=== PATIENT | female | born 1990 ===

== ENCOUNTER 2023-07-02 12:45 | Outpatient (CLI) | payer OTHER ==
--- NOTE | 2023-07-03 08:38 | Ultrasound Report ---
LIMITED ULTRASOUND OF RIGHT BREAST: 07/02/2023 CLINICAL: Patient returns for a 6 month follow up of the right breast. Comparison is made to exams dated: 08/12/2022 ultrasound, 11/01/2020 ultrasound, and 08/24/2020 [facility]. Color flow ultrasound of the right breast 12 o'clock region was performed. Boudreaux scale images of the real-time examination were reviewed. There is a 2.3 cm x 2.3 cm x 2 cm round mass in the right breast at 12 o'clock middle depth 5 cm from the nipple. This round mass is heterogeneously hypoechoic with a thickened, echogenic boundary. Th is abnormality is not significantly changed compared to the most recent ultrasound (08/12/22), but inc reased compared to a pre- ultrasound 08/24/20. Color flow imaging demonstrates that there is an adjacent vascularity. IMPRESSION: PROBABLY BENIGN The 2.3 cm x 2.3 cm x 2 cm round mass in the right breast was biopsy-proven in 2020 to be a fibroaden cristhian, has increased in size, likely due to hormonal stimulation, and is probably benign. Given interval growth from the initial exam, a follow-up right ultrasound in 6 months is recommended to demonstrate post stability. Findings and recommendations were conveyed to the patient at time of exam. This exam was interpreted at Station ID: [id number]. Electronically Signed By: Tania zabala/:07/02/2023 14:39:19 Ultrasound BI-RADS: 3 Probably benign BI-RADS CATEGORY: (3) - 3 Ultrasound [id number] 6 month follow-up LATERALITY: (R)
== END 2023-07-02 12:46 | disposition home or self-care (01) ==
LOC: DI 12:45
PROVIDERS: ATTEND Nurse Practitioner Family
DX: D24.1 Benign neoplasm of right breast (principal)

== ENCOUNTER 2023-09-07 07:35 | Emergency (ER) | payer OTHER ==
--- NOTE | 2023-09-07 08:12 | ED Physician Documentation ---
PD HPI HEADACHE - Stated complaint Stated Complaint: ZHAO - Chief complaint Chief Complaint: Neuro - History obtained from History obtained from: Patient - History of Present Illness Timing - onset: Yesterday Pain level max: 8 Pain level now: 8 Location: Global Associated symptoms: No: Fever, Stiff neck, Vomiting, Weakness, Numbness, Syncope, Seizure Improved by: Dark room Worsened by: Light, Noise Contributing factors: No: Anticoagulated - Additional information Additional information: 33-year-old female presents to the emergency department with migraine headache, ongoing since yesterday. Usually takes Imitrex, but is out of it. 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 Worse with light and sound. Gradual onset. Global. No trauma. No fevers. Better with darkroom, or slight and sound. Denies any possibility of . Not breast-feeding. Review of Systems Constitutional: denies: Fever Neurologic: denies: Seizure, Headache PD PAST MEDICAL HISTORY - Past Medical History Past Medical History: Yes Neuro: Migraines Psych: Anxiety - Past Surgical History Past Surgical History: Yes General: Appendectomy HEENT: Tonsil/Adenoidectomy - Present Medications Home Medications: Ambulatory Orders Medication Instructions Recorded Confirmed Amitriptyline HCl 1 tab PO DAILY 09/07/23 09/07/23 FLUoxetine [PROzac] 1 cap PO DAILY 09/07/23 09/07/23 Propranolol HCl 1 tab PO DAILY 09/07/23 09/07/23 Sumatriptan Succinate [Imitrex] 1 tab PO PRN PRN 09/07/23 09/07/23 - Allergies Allergies/Adverse Reactions: Allergies Allergy/AdvReac Type Severity Reaction Status Date / Time No Known Drug Allergies Allergy Verified 09/07/23 07:49 - Social History Does the pt smoke?: No Smoking Status: Never smoker Does the pt drink ETOH?: No Does the pt have substance abuse?: No - Immunizations Immunizations are current?: Yes - POLST Patient has POLST: No PD ED PE NORMAL - Vitals Vital signs reviewed: Yes - General General: Alert and oriented X 3, No acute distress, Other (Lying with a towel over her head,) - HEENT HEENT: Atraumatic, PERRL, EOMI, Moist mucous membranes - Neck Neck: Supple, no meningeal sign, No bony TTP - Cardiac Cardiac: RRR, Strong equal pulses - Respiratory Respiratory: No respiratory distress, Clear bilaterally - Abdomen Abdomen: Soft, Non tender, Non distended - Derm Derm: Warm and dry - Neuro Neuro: Alert and oriented X 3, 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 Given Toradol, Phenergan and Benadryl. Headache resolved. Patient feels much better and is requesting to go home at this time. No focal neurological deficits. Normal cerebellar testing. Normal gait. No evidence of subarachnoid hemorrhage, tumor. No indication for emergent neuroimaging. Patient counseled regarding signs and symptoms for which I believe and urgent re-evaluation would be necessary. Patient with good understanding of and agreement to plan and is comfortable going home at this time This document was made in part using voice recognition software. While efforts are made to proofread this document, sound alike and grammatical errors may occur. Departure - Departure Disposition: 01 Home, Self Care Clinical Impression: Migraine headache Qualifiers: Migraine type: unspecified Status migrainosus presence: without status migrainosus Intractability: not intractable Qualified Code(s): G43.909 - Migraine, unspecified, not intractable, without status migrainosus Condition: Good Instructions: ED Headache Migraine Follow-Up: HODAN HERNANDEZ ARNP [Primary Care Provider] - Comments: You were treated for a migraine headache today with Toradol, Phenergan and Benadryl. Please follow-up with your doctor for further care. Please return if you worsen. Forms: PCP List Discharge Date/Time: 09/07/23 09:00
[2023-09-07] MEDS: diphenhydrAMINE INJ 50 MG/ML VIAL IM STA (08:27)
[2023-09-07] MEDS: PROMETHAZINE 25 MG/1 ML VIAL IM STA (08:27)
[2023-09-07] MEDS: KETOROLAC 60 MG/2 ML VIAL IM STA (08:27)
[2023-09-07 09:18] VITALS: BP 121/74; O2SAT 100
== END 2023-09-07 09:00 | disposition home or self-care (01) ==
LOC: ED 07:35
DX: G43.909 Migraine, unspecified, not intractable, without status migrainosus (principal)
CPT/HCPCS: 96372; 99283; J1200

== ENCOUNTER 2023-11-11 13:21 | Outpatient (CLI) | payer OTHER ==
--- NOTE | 2023-11-12 08:00 | Mammography Report ---
BILATERAL DIGITAL DIAGNOSTIC MAMMOGRAM 3D/2D: 11/11/2023 CLINICAL: Diffuse bilateral breast pain. Baseline exam. No prior exams were available for comparison. There are scattered areas of fibroglandular density in both breasts (category b / 25%-50% glandular t issue). There is a biopsy clip in the right breast. No significant masses, calcifications, or other findings are seen in either breast. Of note, because the patient's symptoms are diffuse, no BB marker was jacqueline lakshmi. IMPRESSION: BENIGN Status post right breast needle biopsy. No mammographic evidence of malignancy. Recommend routine scr eening mammogram starting at age 40. Of note, patient will be due for right breast ultrasound in 2023 for follow up of previously described probably benign ultrasound finding on 07/02/2023. Diffuse, non-focal symptoms, such as pain or fullness are typically benign. Clinical follow-up is als o recommended, and further management of these symptoms should be based on the results of clinical ev aluation. If diffuse symptoms persist or become more focal in nature, further clinical evaluation fide uld be considered. Findings and recommendations were conveyed to the patient during today's evaluation. Based on the Tyrer Cuzick model (a risk assessment model) the patient's lifetime risk is 10.5% and he r 10 year risk is 0.4%. According to the ACR, ACS, and NCCN guidelines, an annual breast MRI exam kwame ng with mammogram is recommended if the patient's lifetime risk is 20% or greater. This exam was interpreted at Station ID: [id number]. NOTE: For mammograms, a report in lay terms will be sent to the patient. Approximately 15% of breast malignancies will not be visualized mammographically. In the management of a palpable breast mass, a negative mammogram must not discourage biopsy of a clinically suspicious lesion. Electronically Signed By: Ruth Damon M.D., Ph.D. eb/:11/11/2023 14:22:46 ACR BI-RADS Category 2: Benign Finding(s) 3342F PARENCHYMAL PATTERN: (A) - The breast(s) demonstrate(s) scattered fibroglandular densities. BI-RADS CATEGORY: (2) - 2 Unspecified - other recall n/a LATERALITY: (B)
== END 2023-11-11 13:22 | disposition home or self-care (01) ==
LOC: DI 13:21
PROVIDERS: ATTEND Family Medicine
DX: N64.4 Mastodynia (principal); R92.323 Mammographic fibroglandular density, bilateral breasts

== ENCOUNTER 2023-11-26 10:49 | Emergency (ER) | payer OTHER ==
[2023-11-26 11:52] LABS: BASOPHILS # (AUTO) 0.1 10^3/uL (0.0-0.1); BASOPHILS % (AUTO) 0.5 %; EOSINOPHILS # (AUTO) 0.2 10^3/uL (0.0-0.7); EOSINOPHILS % (AUTO) 1.3 %; HCT - HEMATOCRIT 42.6 % (37.0-47.0); LYMPHOCYTES # (AUTO) 3.2 10^3/uL (1.5-3.5); LYMPHOCYTES % (AUTO) 22.2 %; MEAN CORPUSCULAR HEMOGLOBIN 25.5 pg (27.0-31.0); MEAN CORPUSCULAR HGB CONC 30.5 g/dL (32.0-36.0); MEAN CORPUSCULAR VOLUME 83.7 fL (81.0-99.0); MEAN PLATELET VOLUME 11.2 fL (7.9-10.8); MONOCYTES % (AUTO) 6.8 %; NEUTROPHILS # (AUTO) 9.9 10^3/uL (1.5-6.6); NEUTROPHILS % (AUTO) 68.9 %; PLT - PLATELET COUNT 388 10^3/uL (130-450); RED BLOOD COUNT 5.09 10^6/uL (4.20-5.40); RED CELL DISTRIBUTION WIDTH 13.9 % (12.0-15.0); WHITE BLOOD COUNT 14.3 x10^3/uL (4.8-10.8)
[2023-11-26 12:07] LABS: ALBUMIN/GLOBULIN RATIO 1.3 (1.0-2.2); ALKALINE PHOSPHATASE 78 IU/L (42-121); ALT ALANINE AMINOTRANSFERASE 11 IU/L (10-60); AST ASPARTATE AMINOTRANSFERASE 10 IU/L (10-42); BILIRUBIN,TOTAL 0.7 mg/dL (0.2-1.0); BUN - BLOOD UREA NITROGEN 7 mg/dL (6-20); CALCIUM 9.2 mg/dL (8.5-10.3); CARBON DIOXIDE - CO2 26 mmol/L (21-32); CHLORIDE 105 mmol/L (101-111); CREATININE 0.5 mg/dL (0.6-1.3); GFR - MDRD 144 (>89); GLUCOSE 96 mg/dL (74-104); POTASSIUM 3.8 mmol/L (3.5-4.5); SODIUM 137 mmol/L (135-145); TOTAL PROTEIN 7.2 g/dL (6.4-8.9)
--- NOTE | 2023-11-26 12:08 | ED Physician Documentation ---
History of Present Illness - Stated complaint Stated Complaint: ZHAO,NAUSEA,TINGLING IN MOUTH - Chief complaint Chief Complaint: Neuro - Additonal information Additional information: 33-year-old female with history of known migraines presents to the emergency department for migraine. Patient says around 3 AM she took her prescribed Imitrex as well as Excedrin with little to no relief. She says that the Imitrex that she took with her last 1 and she has had history of breakthrough migraines in the past last time she was here was August 2023 when again she ran out of her Imitrex. She says that she has no vision changes she has photosensitivity no fevers or chills no severe neck pain. She says this feels identical to previous migraines that she has had in the past. No unilateral weakness no focal neurological deficits. PD PAST MEDICAL HISTORY - Past Medical History Past Medical History: Yes Neuro: Migraines Psych: Anxiety - Past Surgical History Past Surgical History: Yes General: Appendectomy HEENT: Tonsil/Adenoidectomy - Present Medications Home Medications: Ambulatory Orders Medication Instructions Recorded Confirmed Amitriptyline HCl 1 tab PO DAILY 09/07/23 11/26/23 FLUoxetine [PROzac] 1 cap PO DAILY 09/07/23 11/26/23 Propranolol HCl 1 tab PO DAILY 09/07/23 11/26/23 Sumatriptan Succinate [Imitrex] 1 tab PO PRN PRN 09/07/23 11/26/23 - Allergies Allergies/Adverse Reactions: Allergies Allergy/AdvReac Type Severity Reaction Status Date / Time No Known Drug Allergies Allergy Verified 11/26/23 11:26 - Social History Does the pt smoke?: No Smoking Status: Never smoker Does the pt drink ETOH?: No Does the pt have substance abuse?: No - Immunizations Immunizations are current?: Yes - POLST Patient has POLST: No PD ED PE NORMAL - Vitals Vital signs reviewed: Yes - General General: Alert and oriented X 3, No acute distress, Well developed/nourished - HEENT HEENT: Atraumatic, PERRL, EOMI - Neck Neck: Supple, no meningeal sign - Cardiac Cardiac: RRR - Respiratory Respiratory: No respiratory distress - Derm Derm: Normal color, Warm and dry, No rash - Neuro Neuro: Alert and oriented X 3, 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, No motor deficit, No sensory deficit, Normal speech Eye Opening: Spontaneous Motor: Obeys Commands Verbal: Oriented GCS Score: 15 - Psych Psych: Normal mood Results - Vitals Vitals: Vital Signs - 24 hr 11/26/23 11/26/23 11/26/23 10:55 11:26 11:34 Temperature 36.6 C Heart Rate 84 77 72 Respiratory 16 16 16 Rate Blood Pressure 134/95 H 174/115 H 140/97 H O2 Saturation 100 97 100 11/26/23 11/26/23 11/26/23 12:31 13:00 13:28 Temperature 36.8 C Heart Rate 77 89 Respiratory 16 16 18 Rate Blood Pressure 174/115 H 147/88 H O2 Saturation 98 98 Oxygen O2 Source Room air - Labs Labs: Laboratory Tests 11/26/23 11/26/23 11:46 11:46 WBC 14.3 H RBC 5.09 Hgb 13.0 Hct 42.6 MCV 83.7 MCH 25.5 L MCHC 30.5 L RDW 13.9 Plt Count 388 MPV 11.2 H Neut # (Auto) 9.9 H Lymph # (Auto) 3.2 Taliaferro # (Auto) 1.0 Eos # (Auto) 0.2 Baso # (Auto) 0.1 Absolute Nucleated RBC 0.00 Nucleated RBC % 0.0 Sodium 137 Potassium 3.8 Chloride 105 Carbon Dioxide 26 Anion Gap 6.0 BUN 7 Creatinine 0.5 L Estimated GFR (MDRD) 144 Glucose 96 Calcium 9.2 Total Bilirubin 0.7 AST 10 ALT 11 Alkaline Phosphatase 78 Total Protein 7.2 Albumin 4.0 Globulin 3.2 Albumin/Globulin Ratio 1.3 Lipase < 10 L PD Medical Decision Making - ED course ED course: This patient presents with a headache most consistent with pts chronic migraines. No headache red flags. Neurologic exam without evidence of meningismus, AMS, focal neurologic findings so doubt meningitis, encephalitis, stroke. Presentation not consistent with acute intracranial bleed to include SAH (lack of risk factors, headache history). No history of trauma so doubt ICH. Given history and physical temporal arteritis unlikely, as is acute angle closure glaucoma. Doubt carotid artery dissection given no focal neuro deficits, no neck trauma or recent neck strain. Patient with no signs of increased intracranial pressure or weight loss and history and physical suggest more benign headache so less likely mass effect in brain from tumor or abscess or idiopathic intracranial hypertension. Pain was controlled with headache cocktail and patient discharged home with PCP Follow-up and return precautions. Departure - Departure Disposition: 01 Home, Self Care Clinical Impression: Migraine Instructions: ED Headache Migraine Comments: Thank you for trusting us with your care. Please follow-up with your primary care provider for Imitrex refill. Please come back in if you are having any Fevers or chills or any worsening recurrent migraine symptoms or worsening migraine pain dizziness confusion or severe lethargy. Wishing a speedy recovery. Forms: PCP List Discharge Date/Time: 11/26/23 13:35
[2023-11-26 12:10] LABS: LIPASE < 10 U/L (11-82)
[2023-11-26] MEDS: SODIUM CHLORIDE 0.9% 1,000 ML IV ONE (12:15)
[2023-11-26] MEDS: KETOROLAC 15 MG/ML VIAL IVP STA (12:23)
[2023-11-26] MEDS: PROCHLORPERAZINE 10 MG/2 ML VIAL IVP STA (12:25)
[2023-11-26] MEDS: diphenhydrAMINE INJ 50 MG/ML VIAL IVP STA (12:27)
[2023-11-26 12:39] VITALS: O2SAT 98
[2023-11-26 13:39] VITALS: BP 147/88
== END 2023-11-26 13:35 | disposition home or self-care (01) ==
LOC: ED 10:49
DX: G43.909 Migraine, unspecified, not intractable, without status migrainosus (principal)
CPT/HCPCS: 36415; 80053; 83690; 85025; 96374; 96375; 99283; J1200